=== PATIENT | female | born 1950 | race Caucasian/White ===

== ENCOUNTER 2022-10-08 09:00 | Emergency (ER) | payer MEDICARE, BC ==
[~2022-10-08] VITALS: Ht 172.7 cm; Wt 66.0 kg
[2022-10-08 09:10] VITALS: BP 117/64
[2022-10-08] MEDS ORDERED: HYDR118S10 PO (10:18)
== END 2022-10-08 11:43 | disposition home or self-care (01) ==
LOC: ER 09:01
DX: S92.351A Displaced fracture of fifth metatarsal bone, right foot, initial encounter for closed fracture (principal); Z88.6 Allergy status to analgesic agent; X50.1XXA Overexertion from prolonged static or awkward postures, initial encounter; Y93.89 Activity, other specified; Y92.89 Other specified places as the place of occurrence of the external cause; Y99.8 Other external cause status
CPT/HCPCS: 73610; 73630; 99284